=== PATIENT | female | born 1965 | race Caucasian/White ===

== ENCOUNTER 2017-07-13 09:15 | Emergency (ER) | payer SELFPAY ==
[2017-07-13] MEDS ORDERED: Methocarbamol 500 MG TAB PO SCH (10:00)
[2017-07-13 10:40] LABS: CKMB 1.6 ng/mL (0-6.6); Troponin I Less than 0.010 ng/mL (< 0.028)
--- NOTE | 2017-07-18 13:22 | EKG ---
Test Reason : ERSPPG Blood Pressure : / mmHG Vent. Rate : 082 BPM Atrial Rate : 082 BPM P-R Int : 208 ms QRS Dur : 080 ms QT Int : 358 ms P-R-T Axes : 035 -08 016 degrees QTc Int : 418 ms Normal sinus rhythm Low voltage QRS Possible Anterolateral infarct , age undetermined Abnormal ECG Confirmed by JULIETA ROJAS ([id number]), videotape editor JAMES HARPER ([id number]) on 07/18/2017 1:22:43 PM Referred By: Confirmed By:JULIETA ROJAS
== END 2017-07-13 11:18 | disposition home or self-care (01) ==
LOC: ERS 09:15
DX: M54.12 Radiculopathy, cervical region (principal); E11.9 Type 2 diabetes mellitus without complications; F32.9 Major depressive disorder, single episode, unspecified; F20.9 Schizophrenia, unspecified; F17.210 Nicotine dependence, cigarettes, uncomplicated; Z79.4 Long term (current) use of insulin; Z79.899 Other long term (current) drug therapy; Z79.82 Long term (current) use of aspirin
CPT/HCPCS: 36415; 82553; 84484; 93005; 99406